=== PATIENT | female | born 1960 | race Caucasian/White ===

== ENCOUNTER 2016-11-06 07:26 | Emergency (ER) | payer BC ==
[~2016-11-06] VITALS: Ht 167.6 cm; Wt 113.6 kg
[~2016-11-06 07:26] MED LIST: AMBIEN CR12.5 MG PO; AMRIX15 MG PO; CINNAMON500 MG PO; CRESTOR; CRESTOR10 MG PO; CYMBALTA; CYMBALTA60 MG PO; DEPAKOTE500 MG PO; ETODOLAC400 M2 PO; FLEXERIL; FOLIC ACID1 MG PO; FUROSEMIDE40 MG PO; HAIR, SKIN & N1 EAC1 PO; HUMALOG (UNIT)1 UNIT IM/SC; HYZAAR; INNOPRAN XL120 MG PO; KADIAN; LOSARTAN POTASS50 MG PO; METOCLOPRAMIDE; METOCLOPRAMIDE H5 MG PO; NEXIUM40 MG PO; OPANA ER30 MG PO; OPANA IR10 MG PO; OSPHENA60 MG PO; OXYCODONE HCL15 MG PO; OXYMORPHONE HCL30 MG PO; PLAVIX; PLAVIX75 MG PO; PREMARIN0.625 MG PO; PREMERIN; PROAIR HFA8.5 GM IH; PROPRANOLOL; Roxicet,Percocet 5/3 PO; SINGULAIR; SINGULAIR10 MG PO; SPIRONOLACTONE; SPIRONOLACTONE50 MG PO; SULFASALAZINE; SULFASALAZINE500 MG PO; TEMAZEPAM30 MG PO; TIZANIDINE HCL4 MG PO; TRAZADONE; Tylenol Regular Stre PO; VITAMIN C500 M1 PO; ZYRTEC10 M3 PO; [UNRECOGNIZED DRUG - OTHER]
[2016-11-06 09:36] LABS: HEMATOCRIT 32.5 % (36.0-46.0); MCH 29.8 PG (29.0-34.0); MCHC 32.6 G/DL (30.0-36.0); MCV 91.3 FL (83-99); MEAN PLAT.VOLUME 9.6 uM^3 (9.5-12.4); PLATELET COUNT 287 K/uL (156-360); RBC DIS.WIDTH-CV 12.7 % (11.8-14.6); RED BLOOD COUNT 3.56 M/uL (3.80-5.20); WHITE BLOOD COUNT 8.4 K/uL (4.1-10.2)
[2016-11-06 09:45] LABS: CHLORIDE 95 mEq/L (99-109); POTASSIUM 4.4 mEq/L (3.7-5.4); SODIUM 135 mEq/L (136-147)
[2016-11-06 09:47] LABS: GLUCOSE 179 mg/dL (70-99)
[2016-11-06 09:48] LABS: ANION GAP 12 MEQ/L (2-14)
[2016-11-06 09:49] LABS: TOTAL BILIRUBIN 0.5 mg/dL (0.0-1.0)
[2016-11-06 09:51] LABS: ALKALINE PHOSPHATASE 85 IU/L (3-129); GFR ESTIMATE (CALCULATED) > 59 mL/min/
[2016-11-06 09:52] LABS: UREA NITROGEN (BUN) 11 mg/dL (9-23)
[2016-11-06 09:57] LABS: TROP-I INTERPRETATION NEGATIVE; TROPONIN-I < 0.01 ng/mL (0.0-0.30)
[2016-11-06 11:42] VITALS: BP 118/64
== END 2016-11-06 11:43 | disposition home or self-care (01) ==
LOC: EME 07:26
PROVIDERS: Nurse Practitioner Family
PROC: 0HQ0XZZ Repair Scalp Skin, External Approach (ICD-10-PCS; principal; 2016-11-06)
DX: S01.01XA Laceration without foreign body of scalp, initial encounter (principal); S32.018A Other fracture of first lumbar vertebra, initial encounter for closed fracture; W18.39XA Other fall on same level, initial encounter; Y92.003 Bedroom of unspecified non-institutional (private) residence as the place of occurrence of the external cause; R42 Dizziness and giddiness; I10 Essential (primary) hypertension; E11.9 Type 2 diabetes mellitus without complications; J45.909 Unspecified asthma, uncomplicated; K21.9 Gastro-esophageal reflux disease without esophagitis; M19.90 Unspecified osteoarthritis, unspecified site; G89.29 Other chronic pain; Z79.891 Long term (current) use of opiate analgesic; Z79.4 Long term (current) use of insulin; Z79.02 Long term (current) use of antithrombotics/antiplatelets
CPT/HCPCS: 70450; 71020; 72125; 72128; 72131; 80053; 84484; 85027; 93005; 99281; 99285; J7030

== ENCOUNTER 2017-11-12 21:26 | Inpatient (IN) | payer OTHER ==
[~2017-11-12] VITALS: Ht 167.6 cm; Wt 111.9 kg
[~2017-11-12 21:26] MED LIST changes: +VITAMIN C1000 MG PO; -VITAMIN C500 M1 PO
[2017-11-12 22:16] LABS: BASOPHIL (%) 0.4 % (0-1); BASOPHIL COUNT 0.1 K/uL (0-0.1); CARBON DIOXIDE (BICARBONATE) 8.5 MEQ/L (20-31); EOSINOPHIL (%) 0 % (0-5); HEMATOCRIT 38.5 % (36.0-46.0); HEMOGLOBIN 12.2 G/DL (11.9-15.5); IMMATURE GRANULOCYTE (%) 4.3 % (0.0-0.7); LYMPHOCYTE (%) 11.9 % (15-42); LYMPHOCYTE COUNT 2.8 K/uL (1.0-2.8); MCH 29.7 PG (29.0-34.0); MCHC 31.7 G/DL (30.0-36.0); MCV 93.7 FL (83-99); MONOCYTE (%) 7.7 % (3-12); MONOCYTE COUNT 1.8 K/uL (0-0.8); NEUTROPHIL (%) 75.7 % (45-76); NEUTROPHIL COUNT 17.7 K/uL (1.8-6.4); PLATELET COUNT 426 K/uL (156-360); RBC DIS.WIDTH-CV 13.9 % (11.8-14.6); RBC DIS.WIDTH-SD 47.9 % (39-53); RED BLOOD COUNT 4.11 M/uL (3.80-5.20); WHITE BLOOD COUNT 23.4 K/uL (4.1-10.2)
[2017-11-12 22:28] LABS: ALBUMIN 3.9 g/dL (3.2-4.8); CHLORIDE 92 mEq/L (99-109); POTASSIUM 4.8 mEq/L (3.7-5.4); SODIUM 128 mEq/L (136-147)
[2017-11-12 22:31] LABS: TOTAL PROTEIN 7.3 g/dL (6.4-8.3)
[2017-11-12 22:32] LABS: TOTAL BILIRUBIN 0.5 mg/dL (0.0-1.0)
[2017-11-12 22:33] LABS: GLUCOSE 713 mg/dL (70-99)
[2017-11-12 22:34] LABS: ALKALINE PHOSPHATASE 213 IU/L (3-129); CREATININE 2.5 mg/dL (0.6-1.3); GFR ESTIMATE (CALCULATED) 21 mL/min/
[2017-11-12 22:35] LABS: UREA NITROGEN (BUN) 32 mg/dL (9-23)
[2017-11-12 22:36] LABS: AST (GOT) 40 IU/L (2-34); DIRECT BILIRUBIN 0.3 mg/dL (0.0-0.3)
[2017-11-12 22:37] LABS: ALT (GPT) 26 IU/L (3-49); LIPASE 4 U/L (1.0-51.0)
[2017-11-13] VITALS (23 sets, daily range): BP systolic 122–214; BP diastolic 51–93
[2017-11-13 00:28] LABS: CHLORIDE 98 mEq/L (99-109); POTASSIUM 4.4 mEq/L (3.7-5.4); SODIUM 129 mEq/L (136-147)
[2017-11-13 00:34] LABS: CREATININE 2.2 mg/dL (0.6-1.3); GFR ESTIMATE (CALCULATED) 24 mL/min/; PHOSPHORUS 3.6 mg/dL (2.5-4.9)
[2017-11-13 00:35] LABS: UREA NITROGEN (BUN) 31 mg/dL (9-23)
[2017-11-13 00:41] LABS: GLUCOSE 469 mg/dL (70-99)
[2017-11-13 06:31] LABS: CHLORIDE 102 MEQ/L (99-109); CREATININE 1.3 MG/DL (0.6-1.3); GFR ESTIMATE (CALCULATED) 45 mL/min/; GLUCOSE 274 mg/dL (70-99); PHOSPHORUS 3.1 mg/dL (2.5-4.9); POTASSIUM 4.1 MEQ/L (3.7-5.4); SODIUM 132 MEQ/L (136-147); UREA NITROGEN (BUN) 26 mg/dL (9-23)
[2017-11-13 09:28] LABS: HEMOGLOBIN A1c (GLYCOHEMOGLOB) 8.8 % (Below 5.7)
[2017-11-13 10:19] LABS: CHLORIDE 104 MEQ/L (99-109); CREATININE 1.1 MG/DL (0.6-1.3); GFR ESTIMATE (CALCULATED) 54 mL/min/; GLUCOSE 176 mg/dL (70-99); PHOSPHORUS 2.7 mg/dL (2.5-4.9); POTASSIUM 3.8 MEQ/L (3.7-5.4); SODIUM 135 MEQ/L (136-147); UREA NITROGEN (BUN) 22 mg/dL (9-23)
[2017-11-13 13:59] LABS: CHLORIDE 107 MEQ/L (99-109); CREATININE 0.9 MG/DL (0.6-1.3); GFR ESTIMATE (CALCULATED) > 59 mL/min/; GLUCOSE 153 mg/dL (70-99); PHOSPHORUS 2.6 mg/dL (2.5-4.9); POTASSIUM 3.7 MEQ/L (3.7-5.4); SODIUM 139 MEQ/L (136-147); UREA NITROGEN (BUN) 18 mg/dL (9-23)
[2017-11-13 18:13] LABS: CHLORIDE 109 MEQ/L (99-109); CREATININE 0.8 MG/DL (0.6-1.3); GFR ESTIMATE (CALCULATED) > 59 mL/min/; GLUCOSE 198 mg/dL (70-99); PHOSPHORUS 3.3 mg/dL (2.5-4.9); POTASSIUM 3.6 MEQ/L (3.7-5.4); SODIUM 138 MEQ/L (136-147); UREA NITROGEN (BUN) 15 mg/dL (9-23)
[2017-11-13 20:23] LABS: ALBUMIN 2.9 G/DL (3.2-4.8); ALKALINE PHOSPHATASE 101 IU/L (3-129); ALT (GPT) 15 IU/L (3-49); AST (GOT) 23 IU/L (2-34); DIRECT BILIRUBIN 0.1 mg/dL (0.0-0.3); MAGNESIUM 1.6 mg/dl (1.3-2.7); TOTAL BILIRUBIN 0.4 MG/DL (0.0-1.0); TOTAL PROTEIN 5.6 G/DL (6.4-8.3)
[2017-11-13 20:55] LABS: APPEARANCE CLEAR ((CLEAR)); BILIRUBIN NEGATIVE; BLOOD NEGATIVE; COLOR YELLOW ((YELLOW)); GLUCOSE (STRIP) NEGATIVE; KETONES 5; LEUKOCYTES NEGATIVE; NITRITE NEGATIVE; PROTEIN (STRIP) NEGATIVE; SPECIFIC GRAVITY 1.013 (1.000-1.030); UROBILINOGEN 0.2 MG/DL (0.2-1.0)
[2017-11-13 21:46] LABS: CHLORIDE 111 MEQ/L (99-109); POTASSIUM 3.3 MEQ/L (3.7-5.4); SODIUM 138 MEQ/L (136-147)
[2017-11-13 21:51] LABS: CREATININE 0.8 MG/DL (0.6-1.3); GFR ESTIMATE (CALCULATED) > 59 mL/min/; GLUCOSE 198 mg/dL (70-99); PHOSPHORUS 3.8 mg/dL (2.5-4.9); UREA NITROGEN (BUN) 14 mg/dL (9-23)
[2017-11-13 21:59] LABS: BASOPHIL (%) 0.2 % (0-1); EOSINOPHIL (%) 0.1 % (0-5); HEMATOCRIT 32.4 % (36.0-46.0); HEMOGLOBIN 10.8 G/DL (11.9-15.5); IMMATURE GRANULOCYTE (%) 0.5 % (0.0-0.7); LYMPHOCYTE COUNT 2.9 K/uL (1.0-2.8); MCH 29.5 PG (29.0-34.0); MCHC 33.3 G/DL (30.0-36.0); MCV 88.3 FL (83-99); MONOCYTE (%) 8.4 % (3-12); MONOCYTE COUNT 0.9 K/uL (0-0.8); NEUTROPHIL (%) 63.8 % (45-76); NEUTROPHIL COUNT 6.9 K/uL (1.8-6.4); PLATELET CLUMPS PRESENT - PLATELET COUNT APPEARS ADQ.; PLATELET COUNT UNABLE TO REPORT K/uL (156-360); RBC DIS.WIDTH-CV 14.4 % (11.8-14.6); RED BLOOD COUNT 3.66 M/uL (3.80-5.20); WHITE BLOOD COUNT 10.8 K/uL (4.1-10.2)
[2017-11-14] VITALS (11 sets, daily range): BP systolic 105–172; BP diastolic 60–90
[2017-11-14 04:41] LABS: BASOPHIL (%) 0.2 % (0-1); EOSINOPHIL (%) 0.2 % (0-5); HEMATOCRIT 30.2 % (36.0-46.0); HEMOGLOBIN 9.9 G/DL (11.9-15.5); IMMATURE GRANULOCYTE (%) 0.2 % (0.0-0.7); LYMPHOCYTE (%) 37.5 % (15-42); LYMPHOCYTE COUNT 3.5 K/uL (1.0-2.8); MCH 29.6 PG (29.0-34.0); MCHC 32.8 G/DL (30.0-36.0); MCV 90.1 FL (83-99); MONOCYTE (%) 9.9 % (3-12); MONOCYTE COUNT 0.9 K/uL (0-0.8); NEUTROPHIL COUNT 4.8 K/uL (1.8-6.4); PLATELET COUNT 224 K/uL (156-360); RBC DIS.WIDTH-CV 14.7 % (11.8-14.6); RBC DIS.WIDTH-SD 48.2 % (39-53); RED BLOOD COUNT 3.35 M/uL (3.80-5.20); WHITE BLOOD COUNT 9.2 K/uL (4.1-10.2)
[2017-11-14 04:54] LABS: POTASSIUM 3.9 mEq/L (3.7-5.4); SODIUM 141 mEq/L (136-147)
[2017-11-14 04:55] LABS: CHLORIDE 113 mEq/L (99-109); MAGNESIUM 1.4 mg/dL (1.3-2.7)
[2017-11-14 04:56] LABS: GLUCOSE 221 mg/dL (70-99)
[2017-11-14 05:00] LABS: CREATININE 0.8 mg/dL (0.6-1.3); GFR ESTIMATE (CALCULATED) > 59 mL/min/
[2017-11-14 05:01] LABS: UREA NITROGEN (BUN) 11 mg/dL (9-23)
[2017-11-15 00:51] VITALS: BP 134/67
[2017-11-15 04:02] VITALS: BP 140/65
[2017-11-15 07:20] VITALS: BP 161/73
[2017-11-15 12:14] VITALS: BP 133/74
[2017-11-15] MEDS ORDERED: LISINOPRIL20 MG PO (13:27)
[2017-11-15] MEDS ORDERED: LANTUS 3 M100 UNITS1 SC (13:28)
[2017-11-15] MEDS ORDERED: NOVOLOG PE100 UNITS/ SC (13:30)
== END 2017-11-15 15:00 | disposition home or self-care (01) | DRG 919 ==
LOC: EME 21:26 → EDOF 22:45 → 4WEST 22:45 → ENRESERV 22:51 → 4WEST 11-13 00:40 → ENRESERV 11-14 09:46 → 4WEST 11-14 11:05 → 2EASTP 11-14 12:51
PROVIDERS: Emergency Medicine; Hospitalist; Obstetrics & Gynecology; Specialist
DX: T85.694A Other mechanical complication of insulin pump, initial encounter (principal); T38.3X6A Underdosing of insulin and oral hypoglycemic [antidiabetic] drugs, initial encounter; E10.10 Type 1 diabetes mellitus with ketoacidosis without coma; G93.41 Metabolic encephalopathy; N17.9 Acute kidney failure, unspecified; E86.0 Dehydration; E66.01 Morbid (severe) obesity due to excess calories; I25.10 Atherosclerotic heart disease of native coronary artery without angina pectoris; M06.9 Rheumatoid arthritis, unspecified; E78.5 Hyperlipidemia, unspecified; K21.9 Gastro-esophageal reflux disease without esophagitis; M79.7 Fibromyalgia; J45.909 Unspecified asthma, uncomplicated; G47.33 Obstructive sleep apnea (adult) (pediatric); F32.9 Major depressive disorder, single episode, unspecified; Z96.41 Presence of insulin pump (external) (internal); Z79.02 Long term (current) use of antithrombotics/antiplatelets; Z79.4 Long term (current) use of insulin; Z88.2 Allergy status to sulfonamides; Z88.1 Allergy status to other antibiotic agents; Z68.41 Body mass index [BMI] 40.0-44.9, adult
CPT/HCPCS: 70450; 71046; 80048; 80048 91; 80076; 81003; 82803; 82948; 83036; 83605; 83690; 83735; 84100; 85025; 87040; 87081; 87086; 87641; 93005; 99281; 99285; J0696; J1650; J1815; J7030; J7040; J7050